=== PATIENT | female | born 2000 | race Caucasian/White ===

== ENCOUNTER 2023-02-18 13:38 | Inpatient (IN) | payer BC, SELFPAY ==
[2023-02-18 13:44] VITALS: BP 126/75; PULSE 92; RESP 18; TEMP 36.5; O2SAT 98
[2023-02-18 13:45] VITALS: BMI 22.1
[2023-02-18 14:00] VITALS: BP 126/75; PULSE 92; RESP 17; TEMP 36.5; O2SAT 98
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
[2023-02-18] MEDS: acetaminophen 325 mg Tablet 650 MG PO (16:34)
[2023-02-18 20:18] VITALS: BP 94/58; PULSE 104; RESP 18; TEMP 36.3; O2SAT 97
[2023-02-19 06:00] VITALS: BP 94/58; PULSE 121; RESP 18; TEMP 36.5; O2SAT 97
--- NOTE | 2023-02-19 06:32 | PC.NURSE ---
Patient became very agitated when this tech and another aid asked to obtain her vitals. Patient sat up and put out her arm. This tech apologized but told her that this was part of the morning routine. Patient stated Sorry their are 14 people in this head and you didn't wake up Enzo . This tech asked patient what she stated and she repeated the above again. This tech asked her whom we woke up then. Patient stated Dale and i didn't realize this was a [facility] This tech then stated That i was sorry for waking up Dale however as stated before this is the morning routine and necessary to take. Patient then grabbed her blanket and covered back up in her bed.
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
[2023-02-19 13:44] VITALS: BP 119/72; PULSE 103; RESP 18; TEMP 37; O2SAT 99
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
[2023-02-19] MEDS: fluoxetine 10 mg Capsule PO (17:55)
[2023-02-19 20:02] VITALS: BP 123/76; PULSE 120; RESP 16; TEMP 36.5; O2SAT 97
[2023-02-19] MEDS: OLANZapine 10 mg TABLET PO (20:35)
[2023-02-20 06:00] VITALS: BP 92/60; PULSE 66; RESP 16; TEMP 36.3; O2SAT 99
[2023-02-20] MEDS: fluoxetine 20 mg Capsule PO (09:44)
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
[2023-02-20] MEDS: OLANZapine 10 mg TABLET PO (20:57)
[2023-02-20 21:21] VITALS: BP 98/64; PULSE 77; RESP 16; TEMP 36.8; O2SAT 98
[2023-02-21 06:00] VITALS: BP 99/67; PULSE 93; RESP 15; TEMP 36.4; O2SAT 98
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
[2023-02-21 09:03] VITALS: BP 99/67; PULSE 93; RESP 15; TEMP 36.4; O2SAT 98
[2023-02-21] MEDS: fluoxetine 20 mg Capsule PO (09:46)
== END 2023-02-21 10:53 | disposition home or self-care (01) | DRG 882 ==
PROVIDERS: Admitting Provider Psychiatry & Neurology Psychiatry; Visit Provider Psychiatry & Neurology Psychiatry
DX: F43.10 Post-traumatic stress disorder, unspecified (principal); F33.9 Major depressive disorder, recurrent, unspecified; Z59.02 Unsheltered homelessness; Z91.410 Personal history of adult physical and sexual abuse; Z91.52 Personal history of nonsuicidal self-harm; Z91.040 Latex allergy status; F60.3 Borderline personality disorder; Z81.8 Family history of other mental and behavioral disorders; Z81.3 Family history of other psychoactive substance abuse and dependence
CPT/HCPCS: 97165